=== PATIENT | male | born 1985 | race Caucasian/White ===

== ENCOUNTER 2022-08-08 21:53 | Inpatient (IN) | payer MEDICAID, OTHER ==
[~2022-08-08] VITALS: Ht 188 cm; Wt 90.1 kg
[2022-08-08] MEDS ORDERED: SODIUM CHLORIDE 0.9% 1,000 ML IV ONE (23:30)
[2022-08-08 23:38] LABS: Basophils # (auto) 0.1 10 ^3/uL (0-0.2); Basophils % (auto) 1.5 % (0.0-2.0); Eosinophils # (auto) 0.2 10 ^3/uL (0-0.8); Hematocrit 38.9 % (41.0-53.0); Hemoglobin 12.7 g/dL (13.5-17.5); Lymphocytes # (auto) 2.3 10 ^3/uL (0.4-5.4); Mean Corpuscular Hemoglobin 30.1 pg (28.0-32.0); Mean Corpuscular Hgb Conc. 32.6 g/dL (32.0-36.0); Mean Corpuscular Volume 92.3 fL (80.0-100.0); Monocytes # (auto) 0.7 10 ^3/uL (0-1.3); Monocytes % (auto) 11.9 % (0.0-12.0); Neutrophils % (auto) 47.6 % (37.0-80.0); Nucleated Red Blood Cells % 0.1 %; Red Blood Cells 4.22 10^6/uL (4.5-5.90); Red Cell Distribution Width 13.1 % (11.8-14.3); White Blood Cell 6.3 10^3/uL (4.4-10.8)
[2022-08-08] MEDS ORDERED: InsuLIN REG 1unit/0.01ml Soln (100units/ml) IV ONE (23:45)
[2022-08-08 23:48] LABS: Albumin 3.5 g/dL (3.4-5.0); Calcium 8.9 mg/dL (8.5-10.1); Potassium 4.3 mmol/L (3.5-5.1)
[2022-08-08 23:50] LABS: Urine Bacteria NONE SEEN /hpf (None Seen); Urine Blood Negative /uL (Negative); Urine Specific Gravity 1.024 (1.001-1.035); Urine WBC 3 /hpf (0 - 3)
[2022-08-08 23:51] LABS: Bilirubin, Total 0.4 mg/dL (0.2-1.0); Total Protein 7.1 g/dL (6.4-8.2)
[2022-08-09 00:03] LABS: Alcohol, Urine < 3.0 mg/dL (0-10); Amphetamine Screen, Urine NEGATIVE (NEGATIVE); Barbiturate Scree,Urine NEGATIVE (NEGATIVE); Benzodiazephine Screen, Urine NEGATIVE (NEGATIVE); Cannabinoid Screen, Urine NEGATIVE (NEGATIVE); Cocaine Screen, Urine NEGATIVE (NEGATIVE); Opiate Scree,Urine NEGATIVE (NEGATIVE); Phencyclidine Screen, Urine NEGATIVE (NEGATIVE)
[2022-08-09 00:12] LABS: BUN/Creatinine Ratio 14.2
[2022-08-09] MEDS ORDERED: GABAPENTIN 300 MG CAP PO ONE (00:15)
[2022-08-09] MEDS ORDERED: HYDROcodone-ACET 10/325MG TAB PO ONE ×2 (00:15→01:30)
[2022-08-09] MEDS ORDERED: ONDANSETRON HCL 4 MG/2 ML VIAL IV PRN (02:30)
[2022-08-09] MEDS: SODIUM CHLORIDE 0.9% 1,000 ML IV SCH ×2 (02:30→19:51)
[2022-08-09] MEDS ORDERED: ACETAMINOPHEN 325 MG TAB PO PRN (02:30)
[2022-08-09] MEDS ORDERED: MORPHINE SULFATE INJ 2 MG/ml SYRG IV PRN ×2 (02:30→03:30)
[2022-08-09] MEDS ORDERED: DOCUSATE SOD 100 MG CAP PO PRN (02:30)
[2022-08-09] MEDS ORDERED: HYDROcodone-ACET 5/325MG TAB PO PRN (02:30)
[2022-08-09] MEDS ORDERED: DEXTROSE (50%) 50ML SYRG IV PRN (02:30)
[2022-08-09] MEDS ORDERED: NITROGLYCERIN 0.4 MG SL TAB SL PRN (03:30)
[2022-08-09] MEDS: ACCU-CHEK COMFORT CURVE STRIP VI SCH ×6 (04:03→23:46)
[2022-08-09] MEDS: InsuLIN REG 1unit/0.01ml Soln (100units/ml) SC SCH ×6 (04:08→23:49)
[2022-08-09 06:19] LABS: Basophils # (auto) 0.1 10 ^3/uL (0-0.2); Eosinophils # (auto) 0.3 10 ^3/uL (0-0.8); Eosinophils % (auto) 5.2 % (0.0-7.0); Hematocrit 37.5 % (41.0-53.0); Hemoglobin 12.6 g/dL (13.5-17.5); Lymphocytes # (auto) 2.5 10 ^3/uL (0.4-5.4); Lymphocytes % (auto) 46.8 % (10.0-50.0); Mean Corpuscular Hgb Conc. 33.6 g/dL (32.0-36.0); Mean Corpuscular Volume 89.3 fL (80.0-100.0); Monocytes # (auto) 0.6 10 ^3/uL (0-1.3); Monocytes % (auto) 10.3 % (0.0-12.0); Neutrophils # (auto) 1.9 10 ^3/uL (1.6-8.6); Neutrophils % (auto) 35.7 % (37.0-80.0); Nucleated Red Blood Cells % 0.1 %; Red Cell Distribution Width 12.8 % (11.8-14.3); White Blood Cell 5.4 10^3/uL (4.4-10.8)
[2022-08-09 06:34] LABS: Albumin 3.2 g/dL (3.4-5.0); Calcium 8.5 mg/dL (8.5-10.1); Potassium 3.3 mmol/L (3.5-5.1)
[2022-08-09 06:51] LABS: BUN/Creatinine Ratio 13.9; Bilirubin, Total 0.3 mg/dL (0.2-1.0); Total Protein 6.5 g/dL (6.4-8.2)
[2022-08-09] MEDS ORDERED: POTASSIUM CHL 20 Meq TABLET PO ONE (07:45)
[2022-08-09 08:05] VITALS: BP 114/68
[2022-08-09] MEDS: ENOXAPARIN SOD 40 MG/0.4 ML SYRINGE SC SCH (10:25)
[2022-08-09 12:00] VITALS: BP 133/64
[2022-08-09] MEDS ORDERED: INSULIN LISPRO (HUMAN) 100 UNITS/ML ML SC ONE (12:00)
[2022-08-09] MEDS ORDERED: INSLANTI SC (13:10)
[2022-08-09] MEDS ORDERED: INSLISPI SC (13:10)
[2022-08-09 16:00] VITALS: BP 128/72
[2022-08-09 22:00] VITALS: BP 136/79
[2022-08-09] MEDS: GABAPENTIN 300 MG CAP PO SCH (23:40)
[2022-08-09] MEDS: INSULIN LANTUS (GLARGINE) 1 /0.01ml (100units/ml) SC SCH (23:48)
[2022-08-10] MEDS: InsuLIN REG 1unit/0.01ml Soln (100units/ml) SC SCH ×5 (04:00→21:19)
[2022-08-10] MEDS: ACCU-CHEK COMFORT CURVE STRIP VI SCH ×5 (04:04→21:16)
[2022-08-10 05:00] VITALS: BP 150/90
[2022-08-10 06:35] LABS: Basophils # (auto) 0.1 10 ^3/uL (0-0.2); Basophils % (auto) 1.3 % (0.0-2.0); Eosinophils # (auto) 0.3 10 ^3/uL (0-0.8); Eosinophils % (auto) 5.1 % (0.0-7.0); Hematocrit 39.3 % (41.0-53.0); Hemoglobin 12.8 g/dL (13.5-17.5); Lymphocytes # (auto) 2.3 10 ^3/uL (0.4-5.4); Lymphocytes % (auto) 38.9 % (10.0-50.0); Mean Corpuscular Hemoglobin 29.9 pg (28.0-32.0); Mean Corpuscular Hgb Conc. 32.6 g/dL (32.0-36.0); Mean Corpuscular Volume 91.8 fL (80.0-100.0); Monocytes # (auto) 0.6 10 ^3/uL (0-1.3); Monocytes % (auto) 9.6 % (0.0-12.0); Neutrophils # (auto) 2.7 10 ^3/uL (1.6-8.6); Neutrophils % (auto) 45.1 % (37.0-80.0); Nucleated Red Blood Cells % 0.1 %; Red Blood Cells 4.28 10^6/uL (4.5-5.90); Red Cell Distribution Width 13.2 % (11.8-14.3)
[2022-08-10 06:51] LABS: BUN/Creatinine Ratio 12.9; Calcium 8.8 mg/dL (8.5-10.1)
[2022-08-10 06:53] LABS: Bilirubin, Total 0.3 mg/dL (0.2-1.0)
[2022-08-10] MEDS: INSULIN LANTUS (GLARGINE) 1 /0.01ml (100units/ml) SC SCH ×2 (07:27→21:23)
[2022-08-10 08:00] VITALS: BP 141/70
[2022-08-10] MEDS: ENOXAPARIN SOD 40 MG/0.4 ML SYRINGE SC SCH (09:30)
[2022-08-10] MEDS: GABAPENTIN 300 MG CAP PO SCH ×2 (09:30→21:16)
[2022-08-10] MEDS: SODIUM CHLORIDE 0.9% 1,000 ML IV SCH (11:34)
[2022-08-10 12:00] VITALS: BP 146/89
[2022-08-10 15:48] VITALS: BP 146/89
[2022-08-10 16:00] VITALS: BP 123/71
[2022-08-10 22:02] VITALS: BP 127/67
[2022-08-11] MEDS: ACCU-CHEK COMFORT CURVE STRIP VI SCH ×3 (00:10→09:05)
[2022-08-11] MEDS: InsuLIN REG 1unit/0.01ml Soln (100units/ml) SC SCH ×2 (04:20)
[2022-08-11 05:08] VITALS: BP 111/95
[2022-08-11] MEDS: INSULIN LANTUS (GLARGINE) 1 /0.01ml (100units/ml) SC SCH ×2 (06:30→06:54)
[2022-08-11] MEDS: SODIUM CHLORIDE 0.9% 1,000 ML IV SCH (06:56)
[2022-08-11 08:00] VITALS: BP 119/67
[2022-08-11 09:00] VITALS: BP 119/67
[2022-08-11] MEDS: GABAPENTIN 300 MG CAP PO SCH (09:14)
[2022-08-11] MEDS: ENOXAPARIN SOD 40 MG/0.4 ML SYRINGE SC SCH (09:14)
== END 2022-08-11 12:18 | disposition home or self-care (01) | DRG 420 ==
LOC: EDBD 21:53 → ER 21:53 → OVERFLOW 08-09 03:21 → EAST 08-09 08:00
PROVIDERS: ADMIT Nurse Practitioner Family; ATTEND Student in an Organized Health Care Education/Training Program
DX: E10.65 Type 1 diabetes mellitus with hyperglycemia (principal); E10.21 Type 1 diabetes mellitus with diabetic nephropathy; E10.40 Type 1 diabetes mellitus with diabetic neuropathy, unspecified; I10 Essential (primary) hypertension; Z91.14 Patient's other noncompliance with medication regimen; Z20.822 Contact with and (suspected) exposure to COVID-19; E10.8 Type 1 diabetes mellitus with unspecified complications
CPT/HCPCS: 36415; 71046; 80053; 80307; 80320; 81001; 82010; 82962; 83036; 85025; 87426; 96361; 96374; G0378; J1815

== ENCOUNTER 2024-06-13 09:29 | Inpatient (IN) | payer MEDICAID ==
[~2024-06-13] VITALS: Ht 182.9 cm; Wt 84.0 kg
[~2024-06-13 09:29] MED LIST: INSLANTI SC; INSLISPI SC
[2024-06-13] MEDS: ONDANSETRON HCL 4 MG/2 ML VIAL IV ONE (10:32)
[2024-06-13] MEDS: PANTOPRAZOLE 40 MG/10 ML VIAL INJ IV ONE (10:32)
[2024-06-13] MEDS: MORPHINE SULFATE 4 MG/ML SYR/VIAL IV ONE (10:32)
[2024-06-13] MEDS: SODIUM CHLORIDE 0.9% 1,000 ML IV ONE (10:45)
[2024-06-13 11:16] LABS: Basophils # (auto) 0.2 10 ^3/uL (0-0.2); Eosinophils # (auto) 0.2 10 ^3/uL (0-0.8); Eosinophils % (auto) 3.2 % (0.0-7.0); Hematocrit 42.8 % (41.0-53.0); Hemoglobin 14.3 g/dL (13.5-17.5); Lymphocytes # (auto) 1.5 10 ^3/uL (0.4-5.4); Lymphocytes % (auto) 27.8 % (10.0-50.0); Mean Corpuscular Hemoglobin 33.1 pg (28.0-32.0); Mean Corpuscular Hgb Conc. 33.4 g/dL (32.0-36.0); Mean Corpuscular Volume 98.9 fL (80.0-100.0); Monocytes # (auto) 0.4 10 ^3/uL (0-1.3); Monocytes % (auto) 8.3 % (0.0-12.0); Neutrophils % (auto) 56.7 % (37.0-80.0); Nucleated Red Blood Cells % 0.1 %; Platelet Count (auto) 322 10^3/uL (140-450); Red Blood Cells 4.32 10^6/uL (4.5-5.90); White Blood Cell 5.3 10^3/uL (4.4-10.8)
[2024-06-13 11:20] VITALS: PULSE 90; RESP 14; O2SAT 100
[2024-06-13 11:38] LABS: Lactic Acid w/Reflex 2.1 mmol/L (0.4-2.0)
[2024-06-13 11:39] LABS: Alanine Aminotransferase 133 U/L (7-40); Albumin 4.7 g/dL (3.2-4.8); Alkaline Phosphatase 168 U/L (46-116); Anion Gap 21 (5-15); Aspartate Aminotransferase 109 U/L (13-40); BUN/Creatinine Ratio 12.4 (10.0-20.0); Bilirubin, Total 0.8 mg/dL (0.2-1.0); Blood Urea Nitrogen 15 mg/dL (9-23); Calcium 9.7 mg/dL (8.7-10.4); Carbon Dioxide 10 mmol/L (20-30); Chloride 96 mmol/L (98-107); Lipase 34 U/L (12-53); Potassium 4.8 mmol/L (3.5-5.1); Sodium 127 mmol/L (136-145); Total Protein 7.6 g/dL (5.7-8.2)
[2024-06-13 11:44] LABS: Glucose 561 mg/dL (74-106)
[2024-06-13] MEDS ORDERED: DEXTROSE (50%) 50ML SYRG IV PRN (12:30)
[2024-06-13 12:32] LABS: Urine Bacteria None Seen /hpf (None Seen)
[2024-06-13 12:45] LABS: Urine Blood Negative /uL (Negative); Urine Clarity Clear (Clear); Urine Color Colorless (Yellow); Urine Mucus FEW (None Seen); Urine Protein, UAD Negative (Negative); Urine Specific Gravity 1.024 (1.001-1.035); Urine Urobilinogen Normal (Negative); Urine WBC 1 /hpf (0 - 3)
[2024-06-13] MEDS: SODIUM CHLORIDE 0.9% 1,000 ML IV SCH ×3 (13:25→18:34)
[2024-06-13] MEDS: INSULIN LANTUS (GLARGINE) 1 /0.01ml (100units/ml) SC ONE (13:26)
[2024-06-13] MEDS ORDERED: ONDANSETRON HCL 4 MG/2 ML VIAL IV PRN (13:30)
[2024-06-13] MEDS ORDERED: ACETAMINOPHEN 325 MG TAB PO PRN (13:30)
[2024-06-13] MEDS ORDERED: DOCUSATE SOD 100 MG CAP PO PRN (13:30)
[2024-06-13] MEDS: ACCU-CHEK COMFORT CURVE STRIP VI SCH (13:47)
[2024-06-13] MEDS: INSULIN DRIP 100 UNIT/100ML 100 ML IV SCH (14:06)
[2024-06-13] MEDS ORDERED: NITROGLYCERIN 0.4 MG SL TAB SL PRN (14:30)
[2024-06-13 15:11] LABS: Potassium 4.1 mmol/L (3.5-5.1); Sodium 138 mmol/L (136-145)
[2024-06-13 15:12] LABS: Anion Gap 16.00001 (5-15); Calcium 6.4 mg/dL (8.7-10.4)
[2024-06-13 15:17] LABS: BUN/Creatinine Ratio 17.1 (10.0-20.0); Blood Urea Nitrogen 13 mg/dL (9-23)
[2024-06-13 15:24] LABS: Chloride 112 mmol/L (98-107)
[2024-06-13 15:27] LABS: Carbon Dioxide < 10 mmol/L (20-30); Glucose 420 mg/dL (74-106)
[2024-06-13 18:37] VITALS: PULSE 96; RESP 12; O2SAT 100
[2024-06-13] MEDS: MORPHINE SULFATE INJ 2 MG/ml SYRG IV PRN (18:51)
[2024-06-13 20:00] VITALS: BP_SYST 137; BP_SYST 138; BP_DIAS 73; BP_DIAS 92; PULSE 79; PULSE 93; RESP 13; RESP 16; TEMP 97.9; TEMP 98.3; O2SAT 97; O2SAT 99
[2024-06-13 21:00] VITALS: BP 131/75; PULSE 72; RESP 16; O2SAT 99
[2024-06-13 21:24] LABS: Chloride 113 mmol/L (98-107); Potassium 4.7 mmol/L (3.5-5.1); Sodium 134 mmol/L (136-145)
[2024-06-13 21:25] LABS: Anion Gap 11.00001 (5-15)
[2024-06-13 21:26] LABS: Calcium 8.3 mg/dL (8.7-10.4)
[2024-06-13 21:32] LABS: BUN/Creatinine Ratio 9.2 (10.0-20.0); Blood Urea Nitrogen 8 mg/dL (9-23); Glucose 90 mg/dL (74-106)
[2024-06-13 21:49] LABS: Carbon Dioxide < 10 mmol/L (20-30)
[2024-06-13 22:00] VITALS: PULSE 70; RESP 14; O2SAT 98
[2024-06-13 23:00] VITALS: BP 115/71; PULSE 78; RESP 21; O2SAT 98
[2024-06-14] VITALS (44 sets, daily range): BP systolic 101–138; BP diastolic 55–88; PULSE 59–81; RESP 9–18; TEMP 97.8–98.2; O2SAT 94–100
[2024-06-14 00:53] LABS: Chloride 109 mmol/L (98-107); Sodium 136 mmol/L (136-145)
[2024-06-14 00:54] LABS: Anion Gap 8 (5-15); Carbon Dioxide 19 mmol/L (20-30)
[2024-06-14 00:55] LABS: Calcium 8.5 mg/dL (8.7-10.4)
[2024-06-14 00:59] LABS: BUN/Creatinine Ratio 11.9 (10.0-20.0); Blood Urea Nitrogen 10 mg/dL (9-23); Glucose 131 mg/dL (74-106)
[2024-06-14] MEDS: HYDROcodone-ACET 5/325MG TAB PO PRN (03:41)
[2024-06-14 06:03] LABS: Basophils # (auto) 0.1 10 ^3/uL (0-0.2); Basophils % (auto) 1.5 % (0.0-2.0); Eosinophils # (auto) 0.4 10 ^3/uL (0-0.8); Eosinophils % (auto) 5.7 % (0.0-7.0); Hematocrit 38.1 % (41.0-53.0); Hemoglobin 12.5 g/dL (13.5-17.5); Lymphocytes # (auto) 2.4 10 ^3/uL (0.4-5.4); Mean Corpuscular Hemoglobin 31.5 pg (28.0-32.0); Mean Corpuscular Hgb Conc. 32.9 g/dL (32.0-36.0); Mean Corpuscular Volume 95.8 fL (80.0-100.0); Monocytes # (auto) 0.7 10 ^3/uL (0-1.3); Monocytes % (auto) 9.7 % (0.0-12.0); Neutrophils # (auto) 3.4 10 ^3/uL (1.6-8.6); Neutrophils % (auto) 49.1 % (37.0-80.0); Nucleated Red Blood Cells % 0.1 %; Platelet Count (auto) 318 10^3/uL (140-450); Red Blood Cells 3.98 10^6/uL (4.5-5.90); Red Cell Distribution Width 14.7 % (11.8-14.3)
[2024-06-14 06:26] LABS: Alanine Aminotransferase 80 U/L (7-40); Albumin 3.3 g/dL (3.2-4.8); Alkaline Phosphatase 116 U/L (46-116); Anion Gap 8 (5-15); Aspartate Aminotransferase 45 U/L (13-40); BUN/Creatinine Ratio 12.5 (10.0-20.0); Blood Urea Nitrogen 11 mg/dL (9-23); Calcium 8.4 mg/dL (8.7-10.4); Carbon Dioxide 20 mmol/L (20-30); Chloride 109 mmol/L (98-107); Glucose 127 mg/dL (74-106); Sodium 137 mmol/L (136-145)
[2024-06-14 06:27] LABS: Bilirubin, Total 0.5 mg/dL (0.2-1.0); Total Protein 5.2 g/dL (5.7-8.2)
[2024-06-14] MEDS: PANTOPRAZOLE 40 MG/10 ML VIAL INJ IV SCH (09:36)
[2024-06-14] MEDS: INSULIN LANTUS (GLARGINE) 1 /0.01ml (100units/ml) SC SCH (09:37)
[2024-06-14 15:21] LABS: Chloride 111 mmol/L (98-107); Potassium 3.6 mmol/L (3.5-5.1); Sodium 138 mmol/L (136-145)
[2024-06-14 15:22] LABS: Anion Gap 5 (5-15); Carbon Dioxide 22 mmol/L (20-30)
[2024-06-14 15:23] LABS: Calcium 8.2 mg/dL (8.7-10.4)
[2024-06-14 15:27] LABS: BUN/Creatinine Ratio 9.3 (10.0-20.0); Blood Urea Nitrogen 7 mg/dL (9-23); Glucose 113 mg/dL (74-106)
[2024-06-14] MEDS ORDERED: DEXTROSE (50%) 50ML SYRG IV PRN (15:45)
[2024-06-14] MEDS: InsuLIN REG 1unit/0.01ml Soln (100units/ml) SC SCH (16:00)
[2024-06-14] MEDS: ACCU-CHEK COMFORT CURVE STRIP VI SCH (16:47)
[2024-06-15] VITALS (8 sets, daily range): BP systolic 111–141; BP diastolic 69–90; PULSE 62–70; RESP 11–20; TEMP 97.6–98.2; O2SAT 95–100
[2024-06-15] MEDS: KETOROLAC TROMETH 30 MG/ML 1ML VIAL IV PRN (00:51)
[2024-06-15 06:54] LABS: Basophils # (auto) 0.1 10 ^3/uL (0-0.2); Basophils % (auto) 1.1 % (0.0-2.0); Eosinophils # (auto) 0.3 10 ^3/uL (0-0.8); Eosinophils % (auto) 5.7 % (0.0-7.0); Hematocrit 37.5 % (41.0-53.0); Hemoglobin 12.5 g/dL (13.5-17.5); Lymphocytes # (auto) 2.1 10 ^3/uL (0.4-5.4); Lymphocytes % (auto) 43.4 % (10.0-50.0); Mean Corpuscular Hemoglobin 31.6 pg (28.0-32.0); Mean Corpuscular Hgb Conc. 33.3 g/dL (32.0-36.0); Monocytes # (auto) 0.3 10 ^3/uL (0-1.3); Monocytes % (auto) 7.3 % (0.0-12.0); Neutrophils % (auto) 42.5 % (37.0-80.0); Nucleated Red Blood Cells % 0.2 %; Platelet Count (auto) 265 10^3/uL (140-450); Red Blood Cells 3.94 10^6/uL (4.5-5.90); Red Cell Distribution Width 14.7 % (11.8-14.3); White Blood Cell 4.8 10^3/uL (4.4-10.8)
[2024-06-15 07:15] LABS: Anion Gap 6 (5-15); Calcium 8.3 mg/dL (8.7-10.4); Carbon Dioxide 23 mmol/L (20-30); Chloride 110 mmol/L (98-107); Potassium 3.7 mmol/L (3.5-5.1); Sodium 139 mmol/L (136-145)
[2024-06-15 07:21] LABS: BUN/Creatinine Ratio 9.4 (10.0-20.0); Blood Urea Nitrogen 8 mg/dL (9-23); Glucose 154 mg/dL (74-106)
[2024-06-15 07:22] LABS: Magnesium 1.6 mg/dL (1.6-2.6)
[2024-06-15 07:23] LABS: Phosphorus 2.1 mg/dL (2.4-5.1)
[2024-06-15] MEDS: HYDROcodone-ACET 5/325MG TAB PO PRN (12:14)
[2024-06-15] MEDS ORDERED: DEXTROSE (50%) 50ML SYRG IV PRN (14:30)
[2024-06-15] MEDS: SODIUM CHLORIDE 0.9% 1,000 ML IV SCH (14:30)
[2024-06-15] MEDS ORDERED: IOHEXOL 300 MG/ML 100ML BOTTLE IJ ONE ×2 (15:02→16:42)
[2024-06-15] MEDS: MORPHINE SULFATE INJ 2 MG/ml SYRG IV PRN (15:31)
[2024-06-15] MEDS: MAGNESIUM SULFATE 1GM/100ML 100 ML IV SCH (16:00)
[2024-06-15] MEDS: InsuLIN REG 1unit/0.01ml Soln (100units/ml) SC SCH ×2 (17:00→22:09)
[2024-06-15] MEDS: ACCU-CHEK COMFORT CURVE STRIP VI SCH (17:00)
[2024-06-15] MEDS: SODIUM PHOSPHATES 24 MEQ in SODIUM CHL 0.9% 100 ML IV ONE (20:09)
[2024-06-15] MEDS: MUPIROCIN 2% OINT 15gm or 22gm FOR MRSA NARES EACHNOSTRI SCH (22:00)
[2024-06-16 01:00] VITALS: BP 114/53; PULSE 63; RESP 18; TEMP 97.9; O2SAT 100
[2024-06-16 05:00] VITALS: BP 118/64; PULSE 58; RESP 16; TEMP 97.9; O2SAT 100
[2024-06-16] MEDS: PANTOPRAZOLE 40 MG TAB PO SCH (06:00)
[2024-06-16 06:28] LABS: Chloride 105 mmol/L (98-107); Potassium 4.6 mmol/L (3.5-5.1); Sodium 135 mmol/L (136-145)
[2024-06-16 06:29] LABS: Anion Gap 2 (5-15); Carbon Dioxide 28 mmol/L (20-31)
[2024-06-16 06:30] LABS: Calcium 8.1 mg/dL (8.7-10.4)
[2024-06-16 06:35] LABS: BUN/Creatinine Ratio 10.5 (10.0-20.0); Blood Urea Nitrogen 9 mg/dL (9-23); Glucose 321 mg/dL (74-106); Magnesium 1.7 mg/dL (1.6-2.6)
[2024-06-16 06:37] LABS: Phosphorus 2.9 mg/dL (2.4-5.1)
[2024-06-16 09:17] VITALS: BP 114/69; PULSE 61; RESP 17; TEMP 97.6; O2SAT 98
[2024-06-16] MEDS: IBUPROFEN 600 MG TAB PO PRN (10:28)
[2024-06-16 15:03] VITALS: BP 121/69; PULSE 67; RESP 17; TEMP 97.6; O2SAT 99
[2024-06-16 17:00] VITALS: BP 123/70; PULSE 64; RESP 16; TEMP 97.5; O2SAT 98
[2024-06-16 21:00] VITALS: BP 131/91; PULSE 70; RESP 17; TEMP 97.8; O2SAT 99
[2024-06-17 01:00] VITALS: BP 124/66; PULSE 65; RESP 16; TEMP 97.8; O2SAT 97
[2024-06-17 05:00] VITALS: BP 117/68; PULSE 60; RESP 18; TEMP 97.7; O2SAT 99
[2024-06-17 09:19] VITALS: BP 109/70; PULSE 60; RESP 16; TEMP 97.8; O2SAT 97
[2024-06-17 13:00] VITALS: BP 124/67; PULSE 60; RESP 16; TEMP 97.7; O2SAT 98
[2024-06-17 17:00] VITALS: BP 107/61; PULSE 65; RESP 16; TEMP 97.6; O2SAT 96
[2024-06-17 21:00] VITALS: BP 115/71; PULSE 70; RESP 17; TEMP 97.8; O2SAT 96
[2024-06-18 05:00] VITALS: BP 117/84; PULSE 56; RESP 18; TEMP 98; O2SAT 100
[2024-06-18 08:00] VITALS: BP 113/67; PULSE 64; RESP 16; RESP 18; TEMP 97.6; O2SAT 97; O2SAT 99
[2024-06-18 12:00] VITALS: BP 159/93; PULSE 89; RESP 18; TEMP 97.4; O2SAT 98
[2024-06-18 16:00] VITALS: BP 146/96; PULSE 103; RESP 18; TEMP 97.8; O2SAT 98
[2024-06-18] MEDS: INSULIN LANTUS (GLARGINE) 1 /0.01ml (100units/ml) SC SCH (16:30)
== END 2024-06-18 19:40 | disposition left against medical advice (07) | DRG 420 ==
LOC: ER 09:29 → TELE 14:27 → DOU IN ICU 18:20 → EAST 06-15 00:36
PROVIDERS: ADMIT Nurse Practitioner Family; ATTEND Internal Medicine
DX: E10.10 Type 1 diabetes mellitus with ketoacidosis without coma (principal); E83.42 Hypomagnesemia; F17.210 Nicotine dependence, cigarettes, uncomplicated; R74.8 Abnormal levels of other serum enzymes; N28.89 Other specified disorders of kidney and ureter; Z53.29 Procedure and treatment not carried out because of patient's decision for other reasons; Z59.00 Homelessness unspecified; Z79.4 Long term (current) use of insulin; Z79.899 Other long term (current) drug therapy; Z91.199 Patient's noncompliance with other medical treatment and regimen due to unspecified reason
CPT/HCPCS: 36415; 36600; 71045; 74178; 76775; 80048; 80053; 81001; 82010; 82805; 82962; 83036; 83605; 83690; 83735; 83930; 84100; 84443; 84484; 85025; 87081; 93005; 99291; 99292; G0378; J1815; J1885; J2405; J2470